=== PATIENT | female | born 1940 | race Caucasian/White ===

== ENCOUNTER 2019-06-03 20:57 | Emergency (ER) | payer MEDICARE ==
[~2019-06-03] VITALS: Ht 154.9 cm; Wt 72.7 kg
[~2019-06-03 20:57] MED LIST: ACET-2971 PO; ASPI-611 PO; CHOL10002 PO; COD1CAPS15 PO; HYDR-3972 PO; IBAN150T16 PO; LOSA50TA64 PO; MAGN500C16 PO; MULT-38 PO; NIA500ERT PO; UBIQ100C3 PO; VIT1CAPS46
[2019-06-03 22:00] LABS: BASOPHILS % (AUTO) 0.7 % (0-1); EOSINOPHILS # (AUTO) 0.1 X10'3 (0-0.9); EOSINOPHILS % (AUTO) 1.4 % (0-6); HEMATOCRIT 39.7 % (35.0-45.0); HEMOGLOBIN 13.7 g/dl (12.0-16.0); LYMPHOCYTES # (AUTO) 2.1 X10'3 (1.1-4.8); LYMPHOCYTES % (AUTO) 30.8 % (21-51); MEAN CORPUSCULAR HEMOGLOBIN 31.3 PG (27.0-31.0); MEAN CORPUSCULAR HGB CONC 34.5 g/dL (33.0-36.5); MEAN CORPUSCULAR VOLUME 90.7 FL (78-98); MEAN PLATELET VOLUME 7.5 FL (7.4-10.4); MONOCYTES # (AUTO) 0.6 X10'3 (0-0.9); MONOCYTES % (AUTO) 8.9 % (2-12); NEUTROPHILS # (AUTO) 3.9 X10'3 (1.8-7.7); NEUTROPHILS % (AUTO) 58.2 % (42-75); PLATELET COUNT 285 X10'3 (140-440); RED BLOOD COUNT 4.38 X10'6 (4.20-5.60); RED CELL DISTRIBUTION WIDTH 13.7 % (11.5-14.5); WHITE BLOOD COUNT 6.7 X10'3 (4.5-11.0)
[2019-06-03 22:07] LABS: ALANINE AMINOTRANSFERASE 28 U/L (12-78); ALBUMIN 3.7 G/DL (3.4-5.0); ALBUMIN/GLOBULIN RATIO 0.9 (1.1-1.5); ALKALINE PHOSPHATASE 75 IU/L (46-116); ANION GAP 11 (8-16); ASPARTATE AMINO TRANSFERASE 28 U/L (10-37); BILIRUBIN,TOTAL 0.7 MG/DL (0.1-1.0); BLOOD UREA NITROGEN 35 MG/DL (7-18); BUN/CREATININE RATIO 24.1 (6.6-38.0); CHLORIDE 104 MMOL/L (99-107); CREATININE 1.45 MG/DL (0.40-0.90); GLUCOSE 105 MG/DL (70-104); POTASSIUM 3.7 MMOL/L (3.5-5.1); SODIUM 141 MMOL/L (135-145); TOTAL CARBON DIOXIDE 26.5 MMOL/L (24-32); TOTAL PROTEIN 7.8 G/DL (6.4-8.2); eGFR 35 ML/MIN
[2019-06-03 22:08] LABS: PARTIAL THROMBOPLASTIN TIME 31 SECONDS (22-32)
[2019-06-03 22:59] LABS: MAGNESIUM 2.2 MG/DL (1.5-2.4)
[2019-06-03] MEDS ORDERED: CARV3.12 PO (23:58)
[2019-06-04] MEDS ORDERED: carvedilol 6.25mg tablet PO ONE
[2019-06-04] MEDS ORDERED: carvedilol 6.25mg tablet PO SCH
[2019-06-04 00:02] VITALS: BP 119/77
== END 2019-06-04 00:47 | disposition home or self-care (01) ==
LOC: ER 20:57
DX: I49.5 Sick sinus syndrome (principal); R55 Syncope and collapse
CPT/HCPCS: 36415; 71045; 80053; 83735; 84484; 85025; 85610; 85730; 93005; 99284

== ENCOUNTER 2019-12-05 11:23 | Outpatient (CLI) | payer MEDICARE ==
[2019-12-05] VITALS (21 sets, daily range): BP systolic 96–131; BP diastolic 45–89
[~2019-12-05 11:23] MED LIST changes: +CARV3.12 PO
== END 2019-12-05 23:59 | disposition home or self-care (01) ==
LOC: CARD DIAG 11:23
PROVIDERS: ATTEND Internal Medicine Cardiovascular Disease
DX: R42 Dizziness and giddiness (principal)
CPT/HCPCS: 93660

== ENCOUNTER 2020-05-29 06:35 | Day surgery (SDC) | payer MEDICARE ==
[2020-05-28 13:49] LABS: BASOPHILS % (AUTO) 0.7 % (0-1); EOSINOPHILS # (AUTO) 0.1 X10'3 (0-0.9); EOSINOPHILS % (AUTO) 1.4 % (0-6); HEMATOCRIT 44.8 % (35.0-45.0); HEMOGLOBIN 14.7 g/dl (12.0-16.0); LYMPHOCYTES # (AUTO) 1.8 X10'3 (1.1-4.8); LYMPHOCYTES % (AUTO) 30.3 % (21-51); MEAN CORPUSCULAR HEMOGLOBIN 29.6 PG (27.0-31.0); MEAN CORPUSCULAR HGB CONC 32.9 g/dL (33.0-36.5); MEAN CORPUSCULAR VOLUME 89.9 FL (78-98); MEAN PLATELET VOLUME 7.8 FL (7.4-10.4); MONOCYTES # (AUTO) 0.5 X10'3 (0-0.9); MONOCYTES % (AUTO) 9.1 % (2-12); NEUTROPHILS # (AUTO) 3.5 X10'3 (1.8-7.7); NEUTROPHILS % (AUTO) 58.5 % (42-75); PLATELET COUNT 259 X10'3 (140-440); RED BLOOD COUNT 4.98 X10'6 (4.20-5.60); RED CELL DISTRIBUTION WIDTH 14.9 % (11.5-14.5)
[2020-05-28 13:57] LABS: ALBUMIN 3.5 G/DL (3.4-5.0); ANION GAP 11 (8-16); BLOOD UREA NITROGEN 27 MG/DL (7-18); CALCIUM 9.5 MG/DL (8.5-10.1); CHLORIDE 102 MMOL/L (99-107); CREATININE 1.35 MG/DL (0.40-0.90); GLUCOSE 106 MG/DL (70-104); POTASSIUM 4.7 MMOL/L (3.5-5.1); SODIUM 140 MMOL/L (135-145); TOTAL CARBON DIOXIDE 27.5 MMOL/L (24-32); eGFR 38 ML/MIN
[2020-05-28 14:01] LABS: PARTIAL THROMBOPLASTIN TIME 28 SECONDS (22-32)
[2020-05-29] VITALS (13 sets, daily range): BP systolic 93–114; BP diastolic 55–89
[~2020-05-29] VITALS: Ht 156.2 cm; Wt 69.5 kg
[2020-05-29] MEDS ORDERED: diphenhydrAMINE 25mg capsule PO PRN (08:05)
[2020-05-29] MEDS ORDERED: LORazepam 0.5 MG tablet PO PRN (08:05)
[2020-05-29] MEDS ORDERED: acetylcysteine 200 MG/ml 4ml vial PO PRN (08:05)
[2020-05-29] MEDS ORDERED: normal saline 1,000 ML IV SCH (08:05)
[2020-05-29] MEDS ORDERED: LIDOcaine/PRILOcaine 5gm cream TP ONE (08:10)
[2020-05-29] MEDS ORDERED: sodium bicarbonate (8.4%) inj. 150 ML in dextrose 5%-water 1,000 ML IV ONE (08:30)
[2020-05-29] MEDS ORDERED: UBID100C16 PO (08:52)
[2020-05-29] MEDS ORDERED: ATOR10TA70 PO (08:52)
[2020-05-29] MEDS ORDERED: APIX2.5T PO (08:52)
[2020-05-29] MEDS ORDERED: POTA20TA10 PO (08:52)
[2020-05-29] MEDS ORDERED: FURO40TA4 PO (08:52)
[2020-05-29] MEDS ORDERED: VIT1CAPS9 PO (08:52)
[2020-05-29] MEDS ORDERED: CHOL50CA2 PO (08:52)
[2020-05-29] MEDS ORDERED: verapamil 2.5 mg/ml inj IV ONE (09:42)
[2020-05-29] MEDS ORDERED: midazolam 2 mg/2 ml injection ONE (09:42)
[2020-05-29] MEDS ORDERED: fentaNYL/PF 50MCG/1 ML 2ML syringe ONE (09:43)
[2020-05-29] MEDS ORDERED: nitroGLYCERIN-Tridil 50MG/D5W 250 ML IV ONE (09:43)
[2020-05-29] MEDS ORDERED: heparin 1,000unit/ml 10ml vial 10 ML ONE (09:43)
[2020-05-29] MEDS ORDERED: iohexol 350MG/ML 100ml bottle IV ONE (09:43)
[2020-05-29] MEDS ORDERED: LIDOcaine 1% (10mg/ml)w/preservative injection 20ml MDV ONE (09:43)
[2020-05-29] MEDS ORDERED: iohexol 350 MG/ML 50ML vial IV ONE (09:43)
[2020-05-29] MEDS ORDERED: HYDROcodone/acetaminophen 10/325mg tab PO PRN (12:10)
[2020-05-29] MEDS ORDERED: HYDROcodone/acetaminophen 5mg/325mg tablet PO PRN (12:10)
[2020-05-29] MEDS ORDERED: CARV6.253 PO (12:42)
== END 2020-05-29 17:57 | disposition home or self-care (01) ==
LOC: SSTAY O 06:35
PROVIDERS: ATTEND Internal Medicine Cardiovascular Disease
DX: R94.39 Abnormal result of other cardiovascular function study (principal); R06.02 Shortness of breath; R53.83 Other fatigue; I25.10 Atherosclerotic heart disease of native coronary artery without angina pectoris; E78.5 Hyperlipidemia, unspecified; I49.5 Sick sinus syndrome; I13.0 Hypertensive heart and chronic kidney disease with heart failure and stage 1 through stage 4 chronic kidney disease, or unspecified chronic kidney disease; I50.30 Unspecified diastolic (congestive) heart failure; N18.9 Chronic kidney disease, unspecified; E78.49 Other hyperlipidemia; I48.91 Unspecified atrial fibrillation; M19.90 Unspecified osteoarthritis, unspecified site; Z79.01 Long term (current) use of anticoagulants; Z79.899 Other long term (current) drug therapy; Z95.0 Presence of cardiac pacemaker; Z83.6 Family history of other diseases of the respiratory system
CPT/HCPCS: 36415; 76937; 80048; 85025; 85610; 85730; 93005; 93460; 99152; 99153; C1760; C1769; C1894; J1644; J2001; J2250; J3010; J7030; J7070; Q0163; Q9967; A4620; A5120; A6258; C1751; J3490

== ENCOUNTER 2023-01-14 15:51 | Emergency (ER) | payer MEDICARE ==
[~2023-01-14] VITALS: Ht 157.5 cm; Wt 59.1 kg
[~2023-01-14 15:51] MED LIST changes: +APIX2.5T PO; -ASPI-611 PO; +ATOR10TA70 PO; -CARV3.12 PO; +CARV6.253 PO; -CHOL10002 PO; +CHOL50CA2 PO; +FURO40TA4 PO; -LOSA50TA64 PO; -MAGN500C16 PO; +MAGN500C4 PO; -NIA500ERT PO; +POTA-197 PO; +UBID100C16 PO; -UBIQ100C3 PO; -VIT1CAPS46; +VIT1CAPS9 PO
[2023-01-14 15:53] VITALS: BP 113/64
[2023-01-14 18:41] LABS: BASOPHILS % (AUTO) 0.4 % (0-1); EOSINOPHILS # (AUTO) 0.1 X10'3 (0-0.9); EOSINOPHILS % (AUTO) 0.9 % (0-6); HEMATOCRIT 34.9 % (35.0-45.0); HEMOGLOBIN 11.8 g/dl (12.0-16.0); LYMPHOCYTES # (AUTO) 1.1 X10'3 (1.1-4.8); LYMPHOCYTES % (AUTO) 13.4 % (21-51); MEAN CORPUSCULAR HEMOGLOBIN 31.9 PG (27.0-31.0); MEAN CORPUSCULAR HGB CONC 33.7 g/dL (33.0-36.5); MEAN CORPUSCULAR VOLUME 94.5 FL (78-98); MEAN PLATELET VOLUME 7.1 FL (7.4-10.4); MONOCYTES # (AUTO) 0.6 X10'3 (0-0.9); MONOCYTES % (AUTO) 7.4 % (2-12); NEUTROPHILS # (AUTO) 6.4 X10'3 (1.8-7.7); NEUTROPHILS % (AUTO) 77.9 % (42-75); PLATELET COUNT 280 X10'3 (140-440); RED CELL DISTRIBUTION WIDTH 15.3 % (11.5-14.5); WHITE BLOOD COUNT 8.3 X10'3 (4.5-11.0)
[2023-01-14 18:51] LABS: ALANINE AMINOTRANSFERASE 81 U/L (12-78); ALKALINE PHOSPHATASE 83 IU/L (46-116); ANION GAP 11 (8-16); ASPARTATE AMINO TRANSFERASE 47 U/L (10-37); BILIRUBIN,TOTAL 0.6 MG/DL (0.1-1.0); BLOOD UREA NITROGEN 53 MG/DL (7-18); BUN/CREATININE RATIO 17.6 (10.0-20.0); CALCIUM 9.4 MG/DL (8.5-10.1); CHLORIDE 92 MMOL/L (99-107); CREATININE 3.01 MG/DL (0.40-0.90); GLUCOSE 103 MG/DL (70-104); MAGNESIUM 1.9 MG/DL (1.5-2.4); POTASSIUM 5.6 MMOL/L (3.5-5.1); SODIUM 125 MMOL/L (135-145); TOTAL CARBON DIOXIDE 21.7 MMOL/L (24-32); eGFR 15 ML/MIN
== END 2023-01-14 19:21 | disposition home or self-care (01) ==
LOC: ER 15:51
DX: S00.03XA Contusion of scalp, initial encounter (principal); I11.0 Hypertensive heart disease with heart failure; E78.00 Pure hypercholesterolemia, unspecified; G89.29 Other chronic pain; M54.9 Dorsalgia, unspecified; W18.39XA Other fall on same level, initial encounter; Y93.89 Activity, other specified; Y92.89 Other specified places as the place of occurrence of the external cause; Y99.8 Other external cause status
CPT/HCPCS: 36415; 70450; 72125; 80053; 83735; 85025; 99284